=== PATIENT | female | born 1980 | race Caucasian/White ===

== ENCOUNTER 2016-07-20 19:05 | Emergency (ER) | payer OTHER ==
--- NOTE | ~2016-07-20 | ER ---
PATIENT'S NAME: MARIO SANCHEZ [facility] AGE: 35 Y [address] ROOM: [place] [address] LOCATION: [facility] ADMIT DATE: 07/20/2016 ER/Outpatient Report DISCHARGE DATE: 07/20/2016 FAMILY PHYSICIAN: Physician, Unknown ATTENDING PHYSICIAN: Efren Stallings Admission date and time are documented on the medical record. I saw the patient at 1920 hours. CHIEF COMPLAINT: Fall, laceration, and abrasions. HISTORY OF PRESENT ILLNESS: This patient is a 35-year-old female who fell out of a moving truck on a gravel road. She suffered multiple abrasions to her feet bilaterally. She has a deep abrasion with some loss of tissue measuring about 1 to 1.5 cm on the inner aspect of the left foot, lateral, and just proximal to the MP joint of the great toe. Neurovascularly intact. She has good flexion and extension of the great toe. Pulse intact. She does have some tenderness in her right hip and left knee. No chest pain or shortness of breath. No headache, eyes, ears, nose, throat, neck, or spine pain. No lightheadedness or dizziness. No syncope or near syncope. Did not hit her head or lose consciousness. No recent coughs, colds, flus, fever, chills, or sweats. No abdominal pain, nausea, vomiting, or diarrhea. No history of neuro changes, psych issues, or endocrine problems. No joint or muscle problems. HOME MEDICATIONS: None. ALLERGIES: NONE. SOCIAL HISTORY: The patient smokes a half-a-pack of cigarettes a day and occasional intake of alcohol. SIGNIFICANT PAST MEDICAL HISTORY: Negative except for tobacco abuse. OPERATIONS: LASIK surgery. REVIEW OF SYSTEMS: All systems reviewed by me are negative with the exception of those discussed in the history of present illness. PATIENT'S NAME: MARIO SANCHEZ [facility] AGE: 35 Y [address] ROOM: [place] [address] LOCATION: [facility] ADMIT DATE: 07/20/2016 ER/Outpatient Report DISCHARGE DATE: 07/20/2016 FAMILY PHYSICIAN: Physician, Unknown ATTENDING PHYSICIAN: Efren Stallings PHYSICAL EXAMINATION: VITAL SIGNS: Temperature 97.4, pulse 106, respirations 16, blood pressure 112/68, and O2 sat on room air was 99%. EXTREMITIES: On examination, the patient has an open wound, deep abrasion to the medial aspect of the left foot just medial and proximal to the MP joint of the great toe. She has other abrasions to the right heel and left heel. The patient has fairly good movement as far as flexion and extension of the great toe. There is no active bleeding. Pulses are intact. NEURO: Appears to be intact. PROCEDURE NOTE: Wound was cleansed copiously with normal saline and Betadine. Did not find any foreign bodies in the tissue that were not irrigated out. A 1% Xylocaine was used for local anesthesia. I used 3-0 Ethilon suture to pull the edges of the wound and deep abrasion together. Wound was cleansed and dressed. The other abrasions were cleansed and dressed. The patient tolerated the procedure well. IMAGING DATA: I did x-ray the patient's left foot, ankle, and knee, no fractures or abnormalities were seen. Pelvis and right hip x-rays were obtained that showed no fracture or abnormalities. We will review all plain films with the radiologist. IMPRESSION: Fall with multiple abrasions to the right and left foot. The patient has open deep abrasion inner aspect of the left foot just medial and proximal to the MP joint of the great toe. The patient has about 1 to 1.5 cm laceration from the deep abrasion and skin edges were brought together with 3-0 Ethilon sutures under local anesthetic. I did give the patient morphine for pain and 2 g of Ancef IV in the emergency department. Tetanus is up-to-date. The patient was discharged home. Observation. Activity as tolerated. Keep wounds clean. Watch for infection. Cleanse and dress wounds 1-2 times a day. Follow up with personal physician in 10 days for suture removal or sooner if problems arise. Discussion ensued with the patient concerning my findings and recommendations, she understands. Wounds were cleansed and dressed prior to dismissal from the emergency department. EFREN STALLINGS MD SDS/modl PATIENT'S NAME: RADMARIO RICHARD [facility] AGE: 35 Y [address] ROOM: [place] [address] LOCATION: [facility] ADMIT DATE: 07/20/2016 ER/Outpatient Report DISCHARGE DATE: 07/20/2016 FAMILY PHYSICIAN: Bailey Oglesby ATTENDING PHYSICIAN: Efren Stallings /[id number] d: 07/21/16 025 t: 07/21/16 1829, OUTPATIENT REPORT
== END 2016-07-20 22:27 | disposition disaster alternative care site (69) ==
LOC: GACC 19:05
PROC: 0HQNXZZ Repair Left Foot Skin, External Approach (ICD-10-PCS; principal; 2016-07-20)
DX: S91.111A Laceration without foreign body of right great toe without damage to nail, initial encounter (principal); S90.811A Abrasion, right foot, initial encounter; F17.210 Nicotine dependence, cigarettes, uncomplicated; Z98.890 Other specified postprocedural states; V87.8XXA Person injured in other specified noncollision transport accidents involving motor vehicle (traffic), initial encounter
CPT/HCPCS: J0690; J2270; J7030